=== PATIENT | female | born 1985 | race African-American/Black ===

== ENCOUNTER 2017-11-04 22:07 | Emergency (ER) | payer OTHER, SELFPAY ==
[2017-11-04 23:03] LABS: BEDSIDE GLUCOSE 99 MG/DL (70-105)
== END 2017-11-04 23:02 | disposition home or self-care (01) ==
LOC: M ED 22:07
DX: F10.129 Alcohol abuse with intoxication, unspecified (principal); F16.129 Hallucinogen abuse with intoxication, unspecified; F17.210 Nicotine dependence, cigarettes, uncomplicated; Z79.899 Other long term (current) drug therapy; Z88.0 Allergy status to penicillin
CPT/HCPCS: 99283